=== PATIENT | female | born 1940 | race Asian ===

== ENCOUNTER → 2017-02-11 | Outpatient (CLI) | payer MEDICARE, OTHER ==
[~2017-02-11] MED LIST: ASPI81TA2 PO; BECL8.7A5 IH; CHOL400C8 PO; COMBISP IH; FISH1CAP49 PO; FLUT44HFA IH; HYDR12.54 PO; LOSA50TA37 PO; MELO7.5T12 PO; METO-325 PO; MONT10TA21 PO; MULT-1259 PO; NITR0.4T SL; OMEP20CA10 PO; RANO500T3 PO; ROSU40 PO; TIMO.5OS OU
== END | disposition home or self-care (01) ==
LOC: MSR 11:16
PROVIDERS: ATTEND Internal Medicine
DX: R76.11 Nonspecific reaction to tuberculin skin test without active tuberculosis (principal); I70.0 Atherosclerosis of aorta; J98.4 Other disorders of lung; J98.11 Atelectasis; J84.10 Pulmonary fibrosis, unspecified; M47.894 Other spondylosis, thoracic region; I89.8 Other specified noninfective disorders of lymphatic vessels and lymph nodes; Z95.1 Presence of aortocoronary bypass graft
CPT/HCPCS: 71020; 86480

== ENCOUNTER → 2019-07-22 | Outpatient (CLI) | payer MEDICARE, OTHER ==
[~2019-07-22] MED LIST changes: +ASPI-1198 PO; -ASPI81TA2 PO; +IOVERSOL 350 MG/ML 150 ML VIAL ONE; -LOSA50TA37 PO; +LOSA50TA64 PO; -METO-325 PO; +METO-391 PO; +OMEP-50 PO; -OMEP20CA10 PO; +SODIUM CHLORIDE 0.9% 100 ML ONE
== END | disposition home or self-care (01) ==
LOC: RADMN 08:42
PROVIDERS: ATTEND Nutritionist Nutrition, Education
DX: I70.1 Atherosclerosis of renal artery (principal); K76.0 Fatty (change of) liver, not elsewhere classified; Z90.49 Acquired absence of other specified parts of digestive tract; I73.9 Peripheral vascular disease, unspecified
CPT/HCPCS: 75635; J7050; Q9967

== ENCOUNTER → 2019-09-08 | Outpatient (CLI) | payer MEDICARE, OTHER ==
[~2019-09-08] MED LIST changes: -IOVERSOL 350 MG/ML 150 ML VIAL ONE; -OMEP-50 PO; +OMEP20CA12 PO; -SODIUM CHLORIDE 0.9% 100 ML ONE
== END | disposition home or self-care (01) ==
LOC: RADPV 09:27
PROVIDERS: ATTEND Internal Medicine Nephrology
DX: I13.0 Hypertensive heart and chronic kidney disease with heart failure and stage 1 through stage 4 chronic kidney disease, or unspecified chronic kidney disease (principal); N18.3 Chronic kidney disease, stage 3 (moderate); I50.9 Heart failure, unspecified
CPT/HCPCS: 76770